=== PATIENT | female | born 1960 | race Caucasian/White ===

== ENCOUNTER 2022-02-06 12:27 | Emergency (ER) | payer OTHER, SELFPAY ==
[2022-02-06 12:35] VITALS: BP 119/66; PULSE 105; RESP 16; TEMP 36.6; O2SAT 97
--- NOTE | 2022-02-06 13:08 | ED.GENADULT ---
HPI - General Adult General Chief complaint: Dental/Oral Stated complaint: DENTAL ABSCESS Time Seen by Provider: 02/06/22 13:08 Source: patient Mode of arrival: ambulatory Limitations: no limitations History of Present Illness HPI narrative: 61-year-old female patient presents to the [facility] with complaints of right-sided dental pain. Patient states she had a tooth chipped off about 3 weeks ago under her bridge. Patient states she woke up this morning and started having some swelling and pain to the right cheek. Denies fevers, body aches or chills. Related Data Allergies Allergy/AdvReac Type Severity Reaction Status Date / Time No Known Allergies Allergy Mild Unverified 05/18/06 15:14 Review of Systems Review of Systems: CONSTITUTIONAL: Denies fever, chills, or sweats. EYES: Denies visual changes, redness, or discharge. ENT: Denies rhinorrhea, congestion, sore throat, or otalgia. Positive swelling to right cheek area with pain to right upper dental area CARDIOVASCULAR: Denies chest pain, palpitations, or edema. RESPIRATORY: Denies cough or dyspnea. GASTROINTESTINAL: Denies abdominal pain, nausea, vomiting, or diarrhea. GENITOURINARY: Denies dysuria or hematuria. SKIN: Denies rash or itching. MUSCULOSKELETAL: Denies back pain, joint pain, or myalgia. NEUROLOGIC: Denies headache, numbness, or weakness. PSYCHIATRIC: Denies anxiety or depression. PMFSH Comments At the time of my signature I agree with nursing past medical history, surgical, social, and family history. There is no relevant family history pertinent to the presenting complaint. Exam Narrative: GENERAL: Well-appearing, well-nourished, and in no acute distress. HEAD: Normocephalic, atraumatic. EYES: PERRLA and EOMI. ENT: Nares clear, no rhinorrhea or epistaxis. Mucous membranes moist. Patient has notable swelling on the right side of face with tenderness on palpation slightly warm to the touch. The right upper gum area is significantly swollen with tenderness and erythema but there is notable area with some pus coming out right above the right upper canine. NECK: Supple. No lymphadenopathy CHEST: Clear to auscultation. No respiratory distress. HEART: Regular rate and rhythm. No murmur heard. Normal peripheral pulses. ABDOMEN: Soft, nontender, nondistended, normal active bowel sounds. EXTREMITIES: Normal range of motion. No edema. SKIN: Warm, dry, no rash. NEURO: No focal deficits. Alert and oriented x3. Course Course Level of Care: Express Care Visit Vital Signs Vital signs: Vital Signs Temperature 36.6 C 02/06/22 12:35 Pulse Rate 105 H 02/06/22 12:35 Respiratory Rate 16 02/06/22 12:35 Blood Pressure 119/66 02/06/22 12:35 Pulse Oximetry 97 02/06/22 12:35 Temperature 36.6 C 02/06/22 12:35 Pulse Rate 105 H 02/06/22 12:35 Respiratory Rate 16 02/06/22 12:35 Blood Pressure 119/66 02/06/22 12:35 Pulse Oximetry 97 02/06/22 12:35 Vital signs reviewed Procedures Abscess I/D oral: Date of Incision: 02/06/22 Time of Incision: 13:57 Side (if applicable): right Sedation/analgesia: none Local Anesthetic: lidocaine 1% Amount of anesthesia used (mL): 2 Technique: incised with #11 blade Irrigation: Yes Packing used?: none I&D Results: Pus Abcess I&D Additional Comments: The procedure was explained and verbal consent is obtained. The wound was anesthetized with 2ml of 1% lidocaine with good anesthesia. Sterile drape and prep are done. The fluctuant center was incised with #11 blade scalpel. A small amount of was expressed. The wound was probed for loculated area and irrigated with normal saline. Wound was left open. Dressing was applied. The patient tolerated the procedure well. Medical Decision Making Differential Diagnosis Differential Diagnosis: Differential diagnosis: Dental caries, periodontal disease, avulsed tooth, tooth infections, mandibular infection, L
[2022-02-06] MEDS: LIDOCAINE HCL 1% LOCAL INJ 20 ML VIAL 10 ML INFILTRATE (13:30)
[2022-02-06] MEDS: LIDOCAINE HCL 2% VISC SOLN 15 ML UDC PO (13:59)
== END 2022-02-06 14:04 | disposition home or self-care (01) ==
PROVIDERS: Emergency Provider Nurse Practitioner Family
DX: K04.7 Periapical abscess without sinus (principal)
CPT/HCPCS: 41800; 99213; G0463

== ENCOUNTER 2022-12-22 13:20 | Emergency (ER) | payer OTHER, SELFPAY ==
--- NOTE | ~2022-12-22 | XR_ITS ---
EXAMINATION: XR chest 2V DATE: 12/22/2022 13:52 INDICATION: Cough and congestion. TECHNIQUE: Frontal and lateral views of the chest were obtained on 3 radiographs. COMPARISON: Chest 2 views 05/18/2006, chest CT 05/05/2006 FINDINGS: There is complete opacification of left hemithorax with volume loss. There is no right-side d pneumonia, pleural effusion, or pneumothorax. The heart size is normal. There are multiple rib defo rmities in left chest. Bilateral breast implants are noted. IMPRESSION: 1. Volume loss and complete opacification of left hemithorax consistent with the reported history of pneumonectomy. Reviewed, dictated and finalized at location A. IMPRESSION: 1. Volume loss and complete opacification of left hemithorax consistent with th e reported history of pneumonectomy.
[2022-12-22 13:26] VITALS: BP 110/70; PULSE 108; RESP 16; TEMP 36.6; O2SAT 95
--- NOTE | 2022-12-22 13:36 | ED.URI ---
HPI - URI/Sore Throat General Chief Complaint: Upper Respiratory Infection Stated Complaint: COUGH/SOB Time Seen by Provider: 12/22/22 13:37 Source: patient and RN notes reviewed History of Present Illness HPI Narrative: Patient is a 62-year-old female who presents to urgent care with complaints of productive cough, chest congestion. Patient states it started a couple days ago and she has been having mucus plugs. Patient does not have a left lung and is concerned for possible pneumonia. 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 Patient denies any fevers, nausea or vomiting. She has been taking Mucinex [id number] and an [id number] inhaler. Patient is requesting a refill of her ProAir. No other acute complaints. No acute distress noted. Patient aware of the plan of care. Some parts of this dictation were generated by voice recognition software and may contain typographical and/or grammatical inaccuracies. Related Data Allergies Allergy/AdvReac Type Severity Reaction Status Date / Time No Known Allergies Allergy Mild Unverified 12/22/22 13:22 Review of Systems Review of Systems: CONSTITUTIONAL: Denies fever, chills, or sweats. EYES: Denies visual changes, redness, or discharge. ENT: Denies rhinorrhea, congestion, sore throat, or otalgia. CARDIOVASCULAR: Denies chest pain, palpitations, or edema. RESPIRATORY: Reports of productive cough without dyspnea GASTROINTESTINAL: Denies abdominal pain, nausea, vomiting, or diarrhea. GENITOURINARY: Denies dysuria or hematuria. SKIN: Denies rash or itching. MUSCULOSKELETAL: Denies back pain, joint pain, or myalgia. NEUROLOGIC: Denies headache, numbness, or weakness. All other systems reviewed are negative, except as documented in HPI. PMFSH Comments At the time of my signature, I reviewed and agree with the nursing past medical, surgical, social, and family history. There is no relevant family history pertinent to the patient complaint. Exam Narrative: GENERAL: This is a well-nourished, well-developed patient, in no apparent distress. HEAD: normocephalic, atraumatic. EYES: PERRL. Sclera clear/white. Vision is grossly intact. EARS: External ears normal, auditory canals clear and without drainage, TMs normal without perforation. Hearing grossly intact. NOSE: External nose normal with no obvious nasal discharge, nares without redness, no rhinorrhea. THROAT: Mucous membranes moist, posterior pharynx clear. Moderate postnasal drainage NECK: Neck supple CARDIOVASCULAR: Regular rate and rhythm RESPIRATORY: Crackles on the right. Breath sounds absent on the left SKIN: warm, intact with no suspicious lesions or rash, good texture and turgor. NEURO: awake, alert, and oriented to person, place and time. There were no obvious focal neurologic abnormalities. EXTREMITIES: No clubbing, cyanosis, or edema. Course Course Level of Care: Express Care Visit Vital Signs Vital signs: Vital Signs Temperature 97.9 F 12/22/22 13:26 Pulse Rate 108 H 12/22/22 13:26 Respiratory Rate 16 12/22/22 13:26 Blood Pressure 110/70 12/22/22 13:26 Pulse Oximetry 95 12/22/22 13:26 Oxygen Delivery Room Air 12/22/22 13:26 Temperature 97.9 F 12/22/22 13:45 Pulse Rate 108 H 12/22/22 13:45 Respiratory Rate 16 12/22/22 13:45 Blood Pressure 110/70 12/22/22 13:45 Pulse Oximetry 95 12/22/22 13:45 Oxygen Delivery Room Air 12/22/22 13:45 Reviewed MDM - URI/Sore Throat MDM Narrative Medical decision making narrative: Reviewed x-ray results with the patient. She is aware that chest x-ray was negative for pneumonia. However due to her through, will treat with antibiotics to prevent further infection. Advised patient complete the oral antibiotic regimen prescribed. Be sure to drink with medication. Complete the steroid regimen. Use inhaler as needed for shortness of breath, whe
[2022-12-22 13:45] VITALS: BP 110/70; PULSE 108; RESP 16; TEMP 36.6; O2SAT 95
== END 2022-12-22 14:26 | disposition home or self-care (01) ==
PROVIDERS: Emergency Provider Nurse Practitioner Family
DX: J40 Bronchitis, not specified as acute or chronic (principal); Z85.118 Personal history of other malignant neoplasm of bronchus and lung; Z90.2 Acquired absence of lung [part of]; Z92.21 Personal history of antineoplastic chemotherapy; Z92.3 Personal history of irradiation
CPT/HCPCS: 71046; 99213; G0463

== ENCOUNTER 2023-02-14 09:33 | Emergency (ER) | payer OTHER, SELFPAY ==
--- NOTE | ~2023-02-14 | XR_ITS ---
EXAMINATION: XR cervical spine 4-5V DATE: 02/14/2023 11:22 INDICATION: Left neck pain. TECHNIQUE: 4 views of cervical spine were obtained. COMPARISON: Chest 2 views 12/22/2022 FINDINGS: There is 5 degrees levocurvature of cervical spine. Vertebral body heights are normal. Ther e is severely decreased disc height at C4-C5, C5-C6 and C6-C7. There is multilevel uncovertebral join t osteoarthritis, severe bilaterally from C4-C5 through C6-C7. There is multilevel mild facet joint o steoarthritis bilaterally. There is mild central canal stenosis at C4-C5 and C6-C7 and moderately dec reased disc height at C5-C6. The C7 transverse processes are elongated. No prevertebral soft tissue s welling. There is chronic opacification of left hemithorax, consistent with pneumonectomy. IMPRESSION: 1. Severe cervical spondylosis. Reviewed, dictated and finalized at location A.
[2023-02-14 09:45] VITALS: BP 85/74; PULSE 113; RESP 20; TEMP 36.3; O2SAT 97
--- NOTE | 2023-02-14 10:21 | ED.NECK ---
HPI - Neck Pain/Injury General Chief Complaint: Neck Pain/Injury Stated Complaint: lt side neck pain Time Seen by Provider: 02/14/23 10:21 Source: patient Mode of arrival: ambulatory Limitations: no limitations History of Present Illness HPI Narrative: 62 y/o female with history of lung cancer s/p left pneumonectomy (2006) presented for c/o left neck and shoulder pain for about 2 weeks. Pain is worse for the last 3 days. Denies known injury. States it felt like arthritis pain in the shoulder at onset. Now pain is from the left neck, trapezius area left upper chest, and into the shoulder. States pain is excruciating when laying flat. She endorses last week she had ?left neck cramp? as well as intermittent left wrist pain, stating the wrist felt like it was broken. Patient also reports blurred vision today. She states she is wired wrong stating her BP is low when she is in pain. Taking ibuprofen for pain and applying ice/heat. Denies radiating pain to the hand, numbness, tingling, or weakness, denies sob, chest pain, palpitations, n/v/d. Smokes about 10 cigarettes daily. No PCP. Related Data Home Medications Medication Instructions Recorded Confirmed ibuprofen 600 mg tablet 600 mg PO Q6H PRN Pain, Mild 02/14/23 02/14/23 Allergies Allergy/AdvReac Type Severity Reaction Status Date / Time No Known Allergies Allergy Mild Unverified 02/14/23 09:48 Review of Systems Review of Systems: CONSTITUTIONAL: Denies body aches, fever, chills, or sweats. EYES: Denies visual changes, redness, or discharge. ENT: Denies rhinorrhea, congestion, sore throat, or otalgia. CARDIOVASCULAR: Denies chest pain, palpitations, or edema. RESPIRATORY: Denies cough or dyspnea. SKIN: Denies rash, itching, or wounds. MUSCULOSKELETAL: Per HPI NEUROLOGIC: Denies headache, numbness, tingling, or weakness. All systems reviewed & are unremarkable except as noted in HPI and below [facility] Past Medical History Medical History (Updated 02/14/23 @ 14:27 by Olga Leung APRN) Lung cancer Shoulder fracture, left Surgical History Surgical History (Updated 02/14/23 @ 14:27 by Olga M. Epplin, [employer]) History of pneumonectomy Social History Social History (Updated 02/14/23 @ 14:27 by Olga Leung, VESNA) Smoking packs per day: 0.5 Smoking cigarettes per day: 10.0 Smoking status: Current every day smoker Comments At time of signature, I have reviewed and agree with nursing past medical, surgical, social and family history unless otherwise noted. Please see nursing chart for further information. There is no relevant family history pertinent to the presenting complaint Exam Narrative: GENERAL: Well-appearing, no acute distress. HEAD: Normocephalic, atraumatic. EYES: EOMI. No redness or drainage. Conjunctivae normal. ENT: Mucous membranes pink and moist. No rhinorrhea. TMs normal bilaterally. Throat normal. Uvula midline. NECK: Slightly limited AROM when turning head to left and posteriorly. No lymphadenopathy or VPT CHEST: No respiratory distress. Exp wheezing to right lung. Left edmonds absent hx pneumonectomy HEART: Regular rate and rhythm. No murmur appreciated. Normal peripheral pulses. ABDOMEN: Soft, nontender, nondistended, normal active bowel sounds. EXTREMITIES: Slightly limited range of motion to LUE with overhead extension, hand alternative education teacher strong and equal bilaterally. Minimally tender shoulder, trap, anterior chest. No edema. SKIN: Warm, dry, no rash. Capillary refill normal. Normal skin turgor. NEURO: No focal deficits. Alert and oriented x3. Gait steady. PSYCH: Normal affect. Course Course Emergency Course: Patient is aware of diagnosis, understands and agrees to treatment plan. Anticipatory guidance given. Patient agrees to follow-up as directed and is aware of reasons to seek care at the emergency department. Portions of this record may have been created with voice recognition software Level of Care: Expr
--- NOTE | 2023-02-14 10:41 | ECG_ITS ---
Measurements Intervals [place] Rate: 107 P: 14 IN: 133 QRS: 53 QRSD: 88 T: 58 QT: 328 QTc: 438 Interpretive Statements SINUS TACHYCARDIA POSSIBLE LEFT ATRIAL ENLARGEMENT MINIMAL Q WAVES- INFERIOR LEADS BORDERLINE ECG NO PREVIOUS ECG AVAILABLE FOR COMPARISON Electronically Signed On 02-14-2023 11:31:32 CDT by Albert Montano D.O.
== END 2023-02-14 11:56 | disposition left against medical advice (07) ==
PROVIDERS: Emergency Provider Nurse Practitioner Family
DX: M54.2 Cervicalgia (principal); M47.812 Spondylosis without myelopathy or radiculopathy, cervical region; F17.210 Nicotine dependence, cigarettes, uncomplicated; Z85.118 Personal history of other malignant neoplasm of bronchus and lung
CPT/HCPCS: 72050; 93005; 99213; G0463

== ENCOUNTER 2023-03-12 23:06 | Emergency (ER) | payer OTHER, SELFPAY ==
[2023-03-12 23:15] VITALS: BP 117/77; PULSE 108; RESP 20; TEMP 37.2; O2SAT 96
--- NOTE | 2023-03-12 23:32 | ED.GENADULT ---
HPI - General Adult General Chief complaint: Neck Pain/Injury Stated complaint: Neck Pain Time Seen by Provider: 03/12/23 23:13 History of Present Illness HPI narrative: this is a 62-year-old female presenting with 2 months of neck pain. Patient was seen at an urgent care where she obtained x-rays that showed severe degenerative disease in her neck. Since then she has continued to have severe pain. It is worse with movement. She has been taking Tylenol with no relief. She denies Fevers, chills chest pain difficulty breathing neurologic deficits or trauma. Related Data Home Medications Medication Instructions Recorded Confirmed ibuprofen 600 mg tablet 600 mg PO Q6H PRN Pain, Mild 02/14/23 03/12/23 Allergies Allergy/AdvReac Type Severity Reaction Status Date / Time No Known Allergies Allergy Mild Verified 03/12/23 23:13 [facility] Past Medical History Medical History Lung cancer Shoulder fracture, left Surgical History Surgical History History of pneumonectomy Social History Social History Smoking packs per day: 0.5 Smoking cigarettes per day: 10.0 Smoking status: Current every day smoker Exam Narrative: APPEARANCE: No apparent distress. Head: atraumatic. EYES: EOMI, NOSE: Atraumatic NECK: Tenderness palpation over the left trapezius and left paracervical muscles. no midline tenderness, no overlying skin changes, patient is nodding her head yes and no during the interview. RESPIRATORY: No increased rate of breathing CARDIOVASCULAR: RRR, ABDOMINAL: Non-distended MUSCULOSKELETAl: No obvious deformities NEURO: Alert. Cranial nerves 2-12 grossly intact. Sensation light touch, motor function cerebellar function intact for 4 extremities. Gait exam was normal. SKIN:: Warm, dry. Normal color PSYCHIATRIC: Anxious Course Vital Signs Vital signs: Vital Signs Temperature 98.9 F 03/12/23 23:15 Pulse Rate 108 H 03/12/23 23:15 Respiratory Rate 20 03/12/23 23:15 Blood Pressure 117/77 03/12/23 23:15 Pulse Oximetry 96 03/12/23 23:15 Oxygen Delivery Room Air 03/12/23 23:15 Temperature 98.9 F 03/12/23 23:15 Pulse Rate 108 H 03/12/23 23:15 Respiratory Rate 20 03/12/23 23:15 Blood Pressure 117/77 03/12/23 23:15 Pulse Oximetry 96 03/12/23 23:15 Oxygen Delivery Room Air 03/12/23 23:15 Medical Decision Making MDM Narrative Medical decision making narrative: -Presentation: 62-year-old female presenting with 2 months of neck pain. 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 No concerning findings on history and physical. Patient be discharged primary care follow-up -RX Motrin, Tylenol, Robaxin, lidocaine patch Vital Signs Vital Signs: Vital Signs Temperature 98.9 F 03/12/23 23:15 Pulse Rate 108 H 03/12/23 23:15 Respiratory Rate 20 03/12/23 23:15 Blood Pressure 117/77 03/12/23 23:15 Pulse Oximetry 96 03/12/23 23:15 Oxygen Delivery Room Air 03/12/23 23:15 Temperature 98.9 F 03/12/23 23:15 Pulse Rate 108 H 03/12/23 23:15 Respiratory Rate 20
--- NOTE | 2023-03-12 23:35 | PC.NURSE ---
Pt now reports that she has been taking acetaminophen 500 mg OTC to ERP, not ibuprofen as initially stated during triage assessment.
[2023-03-12] MEDS: KETOROLAC 30 MG/ML VIAL (*BKC) 15 MG IM (23:42)
[2023-03-12] MEDS: LIDOCAINE 5% PATCH 1 PATCH TRANSDERM (23:57)
[2023-03-12] MEDS: methocarbamoL 750 MG TABLET PO (23:57)
== END 2023-03-13 00:05 | disposition home or self-care (01) ==
LOC: CHSED 23:48
PROVIDERS: Emergency Provider Emergency Medicine
DX: S16.1XXA Strain of muscle, fascia and tendon at neck level, initial encounter (principal); M47.812 Spondylosis without myelopathy or radiculopathy, cervical region; F17.210 Nicotine dependence, cigarettes, uncomplicated; Z85.118 Personal history of other malignant neoplasm of bronchus and lung; Z79.891 Long term (current) use of opiate analgesic; X58.XXXA Exposure to other specified factors, initial encounter
CPT/HCPCS: 96372; 99284; A9270; J1100; J1885